=== PATIENT | female | born 1955 | race Two or more races ===

== ENCOUNTER 2017-11-25 07:32 | Day surgery (SDC) | payer OTHER | END 2017-11-25 12:38 | disposition home or self-care (01) | LOC: AMB-ENDOS 07:32 | DX: D12.4 Benign neoplasm of descending colon (principal); K64.1 Second degree hemorrhoids; Z12.11 Encounter for screening for malignant neoplasm of colon ==

== ENCOUNTER 2018-09-02 11:58 | Inpatient (IN) | payer OTHER ==
[~2018-09-02] VITALS: Ht 162.6 cm; Wt 72.6 kg
[2018-09-02] MEDS ORDERED: SYNTHROID150 MCG (12:16)
[2018-09-02] MEDS ORDERED: LIPITOR40 MG (12:16)
[2018-09-02] MEDS ORDERED: AVAPRO75 MG (12:16)
[2018-09-02] MEDS ORDERED: FOSAMAX70 MG (12:17)
== END 2018-09-11 14:18 | DRG 603 ==
LOC: ER 11:58 → MEDJ 19:17
PROVIDERS: ADMIT Specialist
PROC: BW2GZZZ Computerized Tomography (CT Scan) of Pelvic Region (ICD-10-PCS; principal; 2018-09-02)
PROC: 0T9B70Z Drainage of Bladder with Drainage Device, Via Natural or Artificial Opening (ICD-10-PCS; 2018-09-02)
DX: L02.215 Cutaneous abscess of perineum (principal); I10 Essential (primary) hypertension; E03.8 Other specified hypothyroidism; E78.00 Pure hypercholesterolemia, unspecified; K57.30 Diverticulosis of large intestine without perforation or abscess without bleeding; R31.29 Other microscopic hematuria; Z88.0 Allergy status to penicillin; B96.29 Other Escherichia coli [E. coli] as the cause of diseases classified elsewhere